=== PATIENT | male | born 1970 | race Caucasian/White ===

== ENCOUNTER 2022-04-11 14:17 | Emergency (ER) | payer OTHER ==
[~2022-04-11] VITALS: Ht 172.7 cm; Wt 86.4 kg
[2022-04-11] MEDS ORDERED: BACITRACIN 0.9 GM PACKET OINTMENT TP ONE (16:15)
[2022-04-11] MEDS ORDERED: HYDROCODONE/ACETAMINOPHEN 5-325 MG TABLET PO ONE (16:15)
[2022-04-11] MEDS ORDERED: PERTUSS(ACELL),DIPH,TET VAC/PF 0.5 ML SYRINGE IM. ONE (16:15)
[2022-04-11] MEDS ORDERED: AMOX TR/POT CLAV 875 MG/125 MG TABLET PO ONE (16:15)
[2022-04-11] MEDS ORDERED: IBUP-2070 PO (18:33)
[2022-04-11] MEDS ORDERED: AMOX1TAB16 PO (18:36)
[2022-04-11] MEDS ORDERED: BACI28OI29 TP (18:37)
[2022-04-11 19:44] VITALS: BP 122/65
== END 2022-04-11 19:54 | disposition home or self-care (01) ==
LOC: EMS 14:17
DX: S71.152A Open bite, left thigh, initial encounter (principal); W54.0XXA Bitten by dog, initial encounter; Y93.89 Activity, other specified; Y92.89 Other specified places as the place of occurrence of the external cause; Y99.8 Other external cause status
CPT/HCPCS: 90471; 90715; 99283

== ENCOUNTER 2022-05-13 22:00 | Emergency (ER) | payer OTHER ==
[~2022-05-13] VITALS: Ht 172.7 cm; Wt 86.0 kg
[~2022-05-13 22:00] MED LIST: AMOX1TAB16 PO; BACI28OI29 TP; IBUP-2070 PO
[2022-05-13] MEDS ORDERED: LIDOCAINE 1% 20 ML VIAL SQ ONE (23:00)
[2022-05-13] MEDS ORDERED: LIDOCAINE 1% 10 ML VIAL SQ ONE (23:15)
[2022-05-14] MEDS ORDERED: AMOX TR/POT CLAV 875 MG/125 MG TABLET PO ONE (01:00)
[2022-05-14 01:19] VITALS: BP 132/88
[2022-05-14] MEDS ORDERED: AMOX1TAB16 PO (01:51)
== END 2022-05-14 02:06 | disposition home or self-care (01) ==
LOC: EMS 22:14
DX: S02.2XXA Fracture of nasal bones, initial encounter for closed fracture (principal); S61.218A Laceration without foreign body of other finger without damage to nail, initial encounter; Z95.1 Presence of aortocoronary bypass graft; W54.0XXA Bitten by dog, initial encounter; Y93.89 Activity, other specified; Y92.89 Other specified places as the place of occurrence of the external cause; Y99.8 Other external cause status
CPT/HCPCS: 99284; 70450; 70486; 12013; J3490